=== PATIENT | female | born 2000 | race Caucasian/White ===

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

== ENCOUNTER 2021-04-01 14:01 | Emergency (ER) | payer MEDICAID, OTHER ==
[~2021-04-01] VITALS: Ht 170.2 cm; Wt 90.7 kg
[~2021-04-01 14:01] MED LIST: IBUP-2213 PO; LOPE-289 PO; ONDA8TAB87 PO
[2021-04-01 14:18] VITALS: BP 122/70
--- NOTE | 2021-04-01 14:22 | NUR ---
KIARA. HANDED ON URINE CUP.
--- NOTE | 2021-04-01 18:20 | NUR ---
PT AMBULATED TO BED 2
--- NOTE | 2021-04-01 18:37 | NUR ---
20 Y/O FEMALE C/O URINARY BURNING, LOWER ABD PAIN 6/10 DESCRIBES SHARP RADIATES TO LOWER BACK PAIN. PT STATES + N/V X 2 DAYS. DENIES FEVER/CHILLS. ABD IS SOFT, ROUND, NON-TENDER, BOWEL SOUNDS ACTIVE X4. DENIES PMH NKA
[2021-04-01 19:09] LABS: BASOPHILS % (AUTO) 0.3 % (0.0-2.0); EOSINOPHILS # (AUTO) 0.1 K/uL (0-0.4); EOSINOPHILS % (AUTO) 1.4 % (0.0-4.0); HEMATOCRIT 36.1 % (36-48); HEMOGLOBIN 12.5 g/dL (12.0-16.0); LYMPHOCYTES # (AUTO) 2.3 K/uL (2.5-16.5); LYMPHOCYTES % (AUTO) 25.5 % (20.5-51.1); MEAN CORPUSCULAR HEMOGLOBIN 31 pg (27-31); MEAN CORPUSCULAR HGB CONC 35 g/dL (33-37); MEAN CORPUSCULAR VOLUME 89.6 fL (80-94); MONOCYTES # (AUTO) 0.6 K/uL (0.8-1.0); NEUTROPHILS % (AUTO) 65.8 % (42.2-75.2); PLATELET COUNT (AUTO) 221 K/uL (140-450); RED BLOOD CELL COUNT(AUTO) 4.03 MIL/uL (4.20-5.40); RED CELL DISTRIBUTION WIDTH 12.4 % (11.6-13.7)
[2021-04-01 19:14] VITALS: BP 167/74
[2021-04-01 19:19] LABS: ANION GAP 13.9 (8-16); CARBON DIOXIDE 26.3 mmol/L (21-32); CREATININE 0.9 mg/dL (0.6-1.3); POTASSIUM 4.2 mmol/L (3.5-5.1)
--- NOTE | 2021-04-01 19:22 | NUR ---
REPORT RECEIVED FROM RADHA HU FOR CONTINUATION OF PATIENT CARE AT THIS TIME.
--- NOTE | 2021-04-01 19:22 | NUR ---
GAVE REPORT TO RADHA NELSON. TRANSFER OF CARE AT THIS.
[2021-04-01 19:25] LABS: ALBUMIN 3.5 g/dL (3.4-5.0); TOTAL BILIRUBIN 0.2 mg/dL (0.0-1.0)
--- NOTE | 2021-04-01 19:50 | NUR ---
PATIENT LAYING IN BED LOCKED IN LOWESR POSITION W X1 SIDERAIL UP. HOB ELEVATED. PATIENT DENIES ANY PAIN AT THIS TIME. BOWEL SOUNDS PRESENT AND NON-TENDER. DENIES SOB, N/V. CONNECTED TO MONITOR W VSS. BREATHING EVEN AND UNLABORED. NAD NOTED, WILL CONTINUE TO MONITOR.
[2021-04-01] MEDS ORDERED: OMEP20EC11 PO (19:51)
--- NOTE | 2021-04-01 20:08 | NUR ---
Patient discharged with v/s stable. Written and verbal after care instructions given and explained. Patient alert, oriented and verbalized understanding of instructions. Ambulatory with steady gait. All questions addressed prior to discharge. ID band removed. Patient advised to follow up with PMD. Rx of PRILOSEC given. Patient educated on indication of medication including possible reaction and side effects. Opportunity to ask questions provided and answered.
== END 2021-04-01 20:08 | disposition home or self-care (01) ==
LOC: MED 14:01
DX: R10.84 Generalized abdominal pain (principal); F17.210 Nicotine dependence, cigarettes, uncomplicated; F12.10 Cannabis abuse, uncomplicated; Z71.6 Tobacco abuse counseling; Z87.448 Personal history of other diseases of urinary system
CPT/HCPCS: 36415; 80053; 81002; 81025; 83690; 85025; 99283